=== PATIENT | female | born 1950 | race Caucasian/White ===

== ENCOUNTER 2017-03-23 10:33 | Emergency (ER) | payer MEDICARE, OTHER ==
[~2017-03-23 10:33] MED LIST: SYNTHROID25 MCG PO
[2017-03-23 12:48] LABS: HEMOGLOBIN 9.2 gm/dl (12.3-15.3); RED BLOOD COUNT 3.25 M/UL (4.00-5.10); WHITE BLOOD COUNT 12.8 K/UL (4.5-11.0)
[2017-03-23 12:54] LABS: BUN/CREATININE RATIO 28 (0-10)
[2017-05-16] MEDS ORDERED: ARICEPT5 MG PO (03:19)
[2017-05-16] MEDS ORDERED: PRILOSEC OTC20 MG PO (03:20)
[2017-05-16] MEDS ORDERED: NOVOLOG 10100 UNITS/ SQ (03:21)
[2017-05-16] MEDS ORDERED: DITROPAN 5 MG TA5 MG PO (03:22)
[2017-05-16] MEDS ORDERED: CRESTOR10 MG PO (03:22)
[2017-05-16] MEDS ORDERED: ASPIR-LOW81 MG PO (03:23)
[2017-05-16] MEDS ORDERED: EFFEXOR XR150 MG PO (03:24)
[2017-05-16] MEDS ORDERED: LEVEMIR100 UNIT/1 SC (03:25)
[2017-05-16] MEDS ORDERED: VITAMIN D250000 UNIT PO (03:29)
== END 2017-03-23 19:20 | disposition short-term general hospital (02) ==
LOC: ER1 10:33
PROVIDERS: Family Medicine
DX: L89.312 Pressure ulcer of right buttock, stage 2 (principal); L89.102 Pressure ulcer of unspecified part of back, stage 2; E11.622 Type 2 diabetes mellitus with other skin ulcer; M86.8X8 Other osteomyelitis, other site; E11.40 Type 2 diabetes mellitus with diabetic neuropathy, unspecified; Z90.49 Acquired absence of other specified parts of digestive tract; Z88.1 Allergy status to other antibiotic agents; Z91.041 Radiographic dye allergy status; Z79.4 Long term (current) use of insulin; Z79.899 Other long term (current) drug therapy; I25.10 Atherosclerotic heart disease of native coronary artery without angina pectoris
CPT/HCPCS: 80053; 81001; 85025; 86140; 87077; 87086; 87186; 87210; 96374; 99285; J2543; J7030; J7050